=== PATIENT | female | born 1970 | race African-American/Black ===

== ENCOUNTER 2016-04-19 14:57 | Emergency (ER) | payer OTHER ==
[~2016-04-19] VITALS: Ht 160 cm; Wt 65.8 kg
[~2016-04-19 14:57] MED LIST: POLYTRIM O200 GTT/BO OPH
--- NOTE | 2016-04-19 15:33 | ED AMS/SEIZURE/WEAK/DIZZY ---
History of Present Illness General Chief Complaint: Dizziness Stated Complaint: DIZZY Source: patient, family, old records Exam Limitations: no limitations Vital Signs & Intake/Output Vital Signs & Intake/Output Vital Signs Date Time Temp Pulse Resp B/P Pulse O2 O2 Flow FiO2 Ox Delivery Rate 04/19 1658 97.8 70 18 137/76 99 Room Air 04/19 1529 99 Room Air 04/19 1510 97.4 73 16 144/91 96 Room Air Allergies Coded Allergies: aspirin (Severe, SWELLING 04/19/16) ibuprofen (Intermediate, FACIAL SWELLING 04/19/16) Uncoded Allergies: THONY PRODUCTS (Severe, HIVES 11/10/11) Reconcile Medications Diazepam (Valium) 5 MG TABLET 1 TAB PO BIDP PRN dizziness Triage Note: PT STATES SHE HAS BEEN FEELING DIZZY SINCE THIS AM AND CONT. ALL DAY. PT STATES SHE HAD A COUGH AND SHE TOOK SOME DELSUM LAST EVENING AND AGAIN TODAY PT STATES SHE FEELS LIKE SHE IS GOING TO TIP OVER. Triage Nurses Notes Reviewed? yes Onset: Abrupt Duration: day(s): (1), constant, waxing and waning Timing: recent history Injury Environment: work Severity: mild Severity Numbers: 4 No Modifying Factors: none Associated Symptoms: cough : No Patient currently breastfeeds: No HPI: 45-year-old female with no medical history presents to emergency room complaining of room spinning dizziness since waking this morning. She states is been waxing and waning in intensity today there's been no recent head injury or trauma. Patient denies headache blurry vision nausea vomiting shortness of breath chest pain palpitations. She is not taken anything for her symptoms however states that she began taking cough medicine for nonproductive cough which she has had for the past few days she does not smoke. No history of vertigo in the past. There are no modifying factors or associated symptoms otherwise no tinnitus no hearing loss. The patient states she was evaluated at work by EMS they states they took her fingerstick which was normal and transported her to [facility]. The patient states that upon getting to [place] there were so any people there that she left and drove herself here (RADHA DANIELLE,ARAVIND) Past History Travel History Traveled to [place] past 21 day No Medical History Any Pertinent Medical History? none Tetanus Vaccine: 12/12/12 Surgical History Surgical History: none Psychosocial History What is your primary language Hungarian Tobacco Use: Never used ETOH Use: denies use Illicit Drug Use: denies illicit drug use Family History Hx Contributory? No (ARAVIND OAKLEY) Review of Systems Review of Systems Constitutional: Reports: see HPI. All Other Systems: Reviewed and Negative Comments Review of systems: See HPI, All other systems negative. Constitutional, no chills no fever, no malaise HEENT: No visual changes no sore throat no congestion Cardiovascular: No chest pain , no palpitation Skin, no rashes, no change in skin Respiratory: No dyspnea no cough no sputum GI: No nausea no vomiting, no diarrhea, : No dysuria Muscle skeletal: No joint pain, no back pain, no neck pain, Neurologic: No numbness no headache Psych: No stress Heme/endocrine: No bruising no bleeding Immunology: No lymphadenopathy (ARAVIND OAKLEY) Physical Exam Physical Exam General Appearance: well developed/nourished, no apparent distress, alert, awake Comments: Well-developed well-nourished person in no acute distress HEENT: Normal EENT exam; PERRL, EOMI, no nystagmus. HEAD is atraumatic. moist mucous membranes. Neck: Supple, no lymphadenopathy, normal range of motion Back: Nontender, no CVA tenderness. Full range of motion Cardiovascular: Regular rate and rhythms no murmurs rubs Respiratory: No respiratory distress. Patient speaking in full complete sentences. Breath sounds clear to auscultation bilaterally: NO W/R/R Abdomen: Soft, nontender nondistended, no appreciable organomegaly. Normal bowel sounds. No rebound/guarding, Extremity: No edema, full range of motion of extremities Neuro: Alert oriented x3, motor sensory normal, cranial nerves II through XII grossly intact. There were no obvious focal neurologic abnormalities. Skin: No appreciable rash on exposed skin, skin is warm and dry. Psych: Mood and affect is normal, memory and judgment is normal. Core Measures ACS in differential dx? No CVA/TIA Diagnosis: No Severe Sepsis Present: No Septic Shock Present: No (ARAVIND OAKLEY) Progress Differential Diagnosis: arrythmia, anemia, benign positional vertigo, dehydration, labrynthitis, postural hypotension Plan of Care: Orders Procedure Date/time Status COMPREHENSIVE METABOLIC PANEL 04/19 1543 Complete CBC WITHOUT DIFFERENTIAL 04/19 1543 Complete Laboratory Tests 01/11/17 1555: Anion Gap 13, Estimated GFR 60, BUN/Creatinine Ratio 12.0, Glucose 87, Calcium 9.5, Total Bilirubin 0.6, AST 31, ALT 31, Alkaline Phosphatase 85, Total Protein 9.2 H, Albumin 4.6, Globulin 4.6 H, Albumin/Globulin Ratio 1.0 L, CBC w Diff NO MAN DIFF REQ, RBC 3.84 L, MCV 89.2, MCH 29.9, RDW 13.8, MPV 7.8, Gran % 53.5 , Lymphocytes % 31.6, Monocytes % 11.7 H, Eosinophils % 2.7, Basophils % 0.5, Absolute Granulocytes 3.4, Absolute Lymphocytes 2.0, Absolute Monocytes 0.7 H, Absolute Eosinophils 0.2, Absolute Basophils 0, PUBS MCHC 33.6 Labs ordered old records reviewed patient medicated Valium 5 mg by mouth appears in no distress sitting on the bed sideways watching TV and laughing conversing with family. 04/19/2016 4:42:25 PM discussed the patient playful for lab results she is able toward around the room, appears in no apparent distress discussed again at length all of her lab results need for supportive care follow-up with her primary care physician prescription for Valium was provided she feels comfortable with discharge plan. I discussed with her need to use caution with taking the Valium as this may make her drowsy. No driving or drinking alcohol or operating machinery while taking. Cleared for discharge (ARAVIND OAKLEY) Initial ED EKG: none (ARAVIND OAKLEY) Departure Departure Time of Disposition: 1638 Disposition: HOME OR SELF CARE Condition: Stable Clinical Impression Primary Impression: Acute labyrinthitis Referrals: DEAN DAVISON MD (PCP/Family) Additional Instructions: follow up with your pmd this week, Valium as needed- this prescription was sent to your pharmacy. Use caution as this may make you drowsy. Departure Forms: Customer Survey General Discharge Information Prescriptions: Current Visit Scripts Diazepam (Valium) 1 TAB PO BIDP PRN dizziness #10 TAB (ARAVIND OAKLEY) PA/RECREATION THERAPY AIDE Co-Sign Statement Statement: ED Attending supervision documentation- [] I saw and evaluated the patient. I have also reviewed all the pertinent lab results and diagnostic results. I agree with the findings and the plan of care as documented in the PA's/RECREATION THERAPY AIDE's documentation. [X] I have reviewed the ED Record and agree with the PA's/RECREATION THERAPY AIDE's documentation. [] Additions or exceptions (if any) to the PAs/RECREATION THERAPY AIDE's note and plan are summarized below: [] (ROSALINA MURDOCK,MARY)
[2016-04-19 16:04] LABS: ABSOLUTE BASOPHIL COUNT 0 /CUMM (0.0-0.2); ABSOLUTE EOSINOPHIL COUNT 0.2 /CUMM (0.0-0.7); ABSOLUTE GRANULOCYTE CT 3.4 /CUMM (1.4-6.5); ABSOLUTE MONOCYTE COUNT 0.7 /CUMM (0.10-0.60); BASOPHIL % 0.5 % (0.0-2.0); EOSINOPHIL % 2.7 % (0-5); GRANULOCYTE % 53.5 % (42.2-75.2); HEMATOCRIT 34.3 % (37-47); MEAN CORPUSCULAR HGB 29.9 PG (27.0-31.0); MEAN CORPUSCULAR HGB CONC 33.6 G/DL (33.0-37.0); MEAN CORPUSCULAR VOLUME 89.2 FL (81.0-99.0); MEAN PLATELET VOLUME 7.8 FL (7.4-10.4); PLATELET COUNT 221 /CUMM (130-400); RBC DISTRIBUTION WIDTH 13.8 % (11.5-14.5); RED BLOOD CELL CT 3.84 /CUMM (4.20-5.40); WHITE BLOOD CELL COUNT 6.4 /CUMM (4.8-10.8)
[2016-04-19] MEDS ORDERED: VALIUM5 M2 PO ×3 (16:39→16:52)
[2016-04-19 16:58] VITALS: BP 137/76
== END 2016-04-19 17:07 ==
LOC: ERH 14:57
PROVIDERS: Physician Assistant Medical
DX: H83.09 Labyrinthitis, unspecified ear (principal)
CPT/HCPCS: J3360